=== PATIENT | male | born 1985 | race Caucasian/White ===

== ENCOUNTER 2023-02-22 13:20 | Inpatient (IN) ==
[2023-02-22] MEDS ORDERED: LORazepam 1 MG TAB SL STA (13:59)
[2023-02-22] MEDS ORDERED: hydrOXYzine HCl 25 MG TAB PO STA (13:59)
--- NOTE | 2023-02-22 14:08 | Emergency Department Note ---
Impression & Plan Suicidal ideation, Anxiety ED Provider Note NAME: HAYDE PALOMO AGE: 37 SEX: M : 1985 ARRIVES VIA: Walk-In INFORMANT: [Patient] ED PROVIDER(S): [Mendez Lowry MD] CHIEF COMPLAINT: Psychiatric evaluation HISTORY OF PRESENT ILLNESS: The patient is a 37-year-old male who has had anxiety and panic for many many years. He was on Celexa for a while but is not on this medication any longer. The patient states that his doctors office put him on Adderall and Zoloft recently but this did not help, in fact it made him feel worse. He is currently taking his 's leftover Lexapro which he thinks may be helping some. Patient does smoke marijuana regularly. He used to use alcohol as a self- medication but has been avoiding this lately. Patient states that he has had increased stress from work. He just started a new job a few months ago and since starting the job, has been overwhelmed. He has been tearful, he is not sleeping. He is always thinking about the stress of work, Mondays are the worst. The patient is with his patient services technician currently. He was speaking to his patient services technician today for 3 hours or so and the decision was made to come to the hospital for an evaluation and hospitalization. The patient admits to some suicidal ideation with no active plan. He just wishes he would and that the pain from all his stress would go away. PMHx/PSHx: See Below SOCIAL HISTORY: See Below. PHYSICAL EXAM: GENERAL: Patient is in mild distress, anxious, tearful. HEENT: No acute trauma, normocephalic atraumatic, mucous membranes moist, no nasal congestion. NECK: No stridor, no adenopathy, no meningismus, trachea is midline. LUNGS: Clear to auscultation bilaterally, no wheeze, no rhonchi, breath sounds equal. HEART: Mildly tachycardic, regular rhythm, no murmurs. ABDOMEN: Soft, nontender, bowel sounds positive, no peritonitis. EXTREMITIES: No cyanosis or edema, full range of motion of all the joints without pain or difficulty, no signs for acute trauma. NEUROLOGIC: Oriented x 3, no acute motor or sensory deficits, no focal weakness. SKIN: No rash, no jaundice, no diaphoresis. Psychiatric: Cooperative, voluntary, tearful, admits to suicidal ideation with no active plan. DIFFERENTIAL DIAGNOSIS: Psychosis, anxiety or depression, electrolyte imbalance, thyroid disorder, bipolar disease, OCD, suicidality, among others. EMERGENCY DEPARTMENT COURSE/PROCEDURES: Prior/Outside records reviewed: None. MEDICAL DECISION MAKING: There is no leukocytosis or anemia. There is a normal platelet count. No renal failure or significant electrolyte abnormality. No concerning liver enzyme elevation. Patient appeared to be in a euthyroid state. Urinalysis does not show infection. Urine drug screen returned positive for marijuana. Alcohol level returned undetectable. Aspirin and Tylenol levels are currently pending. On exam, the patient was tearful and anxious. He admitted to some suicidal ideation without any true plan. He was voluntary. He was initially hypertensive although this resolved with relaxation and time. The patient received oral hydroxyzine and oral Ativan for his anxiety and stress. He has done well with this medication. Patient was felt medically clear. The patient was seen by psychiatry case management. A voluntary psychiatric bed search is underway. At this point, the patient is going to have his care assumed by Dr. Wang. Please see his note for the patient's final disposition and plan. DISPOSITION: Currently still an ED patient. Past Med/Surg History Medical History Anxiety Social History Smoking Status: Never smoker Preferred Language: Setswana Feels Safe at Home: Yes Gender Identity: Male Results & Data (ED) Vital Signs Vital Signs - 24 hr 02/22/23 13:26 02/22/23 16:30 Temperature 36.6 C Temperature Source Temporal Artery Scan Pulse Rate 105 H Pulse Rate [Finger] 68 Pulse Rhythm [Finger] Regular Pulse Strength [Finger] Normal Respiratory Rate 18 18 Respiratory Effort / Characteristics Non-Labored Spontaneous Non-Labored Respiratory Depth Normal Normal Respiratory Pattern Regular Regular Blood Pressure 174/111 H Blood Pressure [Left Arm] 121/80 Blood Pressure Mean 132 Blood Pressure Mean [Left Arm] 93 Blood Pressure Position Sitting Blood Pressure Position [Left Arm] Sitting Pulse Oximetry 97 98 Oxygen Delivery Method Room Air Room Air Sepsis Recent Fever Within 48 Hours No Sepsis New/Unexplained Change in Mental Status N/A Sepsis Action Taken by Nursing No Action Required Home Medications Current Medication List: was personally reviewed by me Laboratory Data Attestation: I reviewed the patient's lab results. 02/22/23 14:10 02/22/23 14:10 Lab Results 02/22/23 02/22/23 02/22/23 Range/Units 14:05 14:05 14:10 WBC 9.62 (4.8-10.8) K/ul RBC 5.04 (4.70-6.10) M/uL Hgb 15.3 (14.0-18.0) g/dl Hct 43.2 (42.0-52.0) % MCV 85.7 (80.0-100.0) fL MCH 30.4 (25.0-34.0) pg MCHC 35.4 (32.0-36.0) g/dL RDW Std Deviation 37.2 (36.4-46.3) fL RDW Coeff of Maya 12.0 (11.5-14.5) % Plt Count 295 (130-400) K/uL MPV 10.1 (9.4-12.4) fL Immature Gran % (Auto) 0.1 % Neut % (Auto) 71.8 % Lymph % (Auto) 17.6 % [place]lin % (Auto) 8.9 % Eos % (Auto) 1.0 % Baso % (Auto) 0.6 % Neut # (Auto) 6.90 H (1.40-6.50) K/uL Lymph # (Auto) 1.69 (1.2-3.4) K/uL [place]lin # (Auto) 0.86 H (0.11-0.59) K/uL Eos # (Auto) 0.10 (0-0.50) K/uL Baso # (Auto) 0.06 (0-0.2) K/uL Immature Gran # (Auto) 0.01 (0.01-0.20) K/uL Sodium (136-145) mmol/L Potassium (3.5-5.1) mmol/L Chloride (98-107) mmol/L Carbon Dioxide (21-32) mmol/L Anion Gap (3-11) BUN (6-23) mg/dl Creatinine (0.6-1.4) mg/dl Est Cr Clr Drug Dosing Est GFR ( Amer) ml/min Est GFR (Non-Af Amer) ml/min BUN/Creatinine Ratio (10-20) Glucose (70-99(Fasting)) mg/dl Calcium (8.6-10.3) mg/dl Total Bilirubin (0.2-1.0) mg/dl AST (13-39) U/L ALT (7-52) U/L Alkaline Phosphatase (34-104) U/L Total Protein (6.0-8.3) gm/dl Albumin (3.4-5.0) gm/dl Globulin (2.5-4.0) gm/dl Albumin/Globulin Ratio (0.9-2) TSH (0.300-4.500) uIu/ml Urine Color Yellow Urine Appearance Clear (Clear) Urine pH 7.0 (4.5-7.5) Ur Specific [place] 1.016 (1.000-1.030) Urine Protein Negative (Negative) Urine Glucose (UA) Negative (Negative) Urine Ketones Negative (Negative) Urine Blood Negative (Negative) Urine Nitrite Negative (Negative) Urine Bilirubin Negative (Negative) Urine Urobilinogen Negative (Negative) Ur Leukocyte Esterase Negative (Negative) Urine Opiates Screen Neg (Neg) Ur Methadone, Qual Neg (Neg) Urine Barbiturates Neg (Neg) Ur Phencyclidine (PCP) Neg (Neg) U Amphetamin/Meth Scrn Neg (Neg) MDMA (Ecstasy) Screen Neg (Neg) U Benzodiazepines Scrn Neg (Neg) Ur Cocaine Metabolite Neg (Neg) U Marijuana (THC) Screen Pos H (Neg) Ethyl Alcohol mg/dL (<10.0) mg/dl SARS-CoV-2, RNA, NAAT (NEGATIVE) 02/22/23 02/22/23 02/22/23 Range/Units 14:10 14:10 14:10 WBC (4.8-10.8) K/ul RBC (4.70-6.10) M/uL Hgb (14.0-18.0) g/dl Hct (42.0-52.0) % MCV (80.0-100.0) fL MCH (25.0-34.0) pg MCHC (32.0-36.0) g/dL RDW Std Deviation (36.4-46.3) fL RDW Coeff of Maya (11.5-14.5) % Plt Count (130-400) K/uL MPV (9.4-12.4) fL Immature Gran % (Auto) % Neut % (Auto) % Lymph % (Auto) % [place]lin % (Auto) % Eos % (Auto) % Baso % (Auto) % Neut # (Auto) (1.40-6.50) K/uL Lymph # (Auto) (1.2-3.4) K/uL [place]lin # (Auto) (0.11-0.59) K/uL Eos # (Auto) (0-0.50) K/uL Baso # (Auto) (0-0.2) K/uL Immature Gran # (Auto) (0.01-0.20) K/uL Sodium 137 (136-145) mmol/L Potassium 3.8 (3.5-5.1) mmol/L Chloride 102 (98-107) mmol/L Carbon Dioxide 26 (21-32) mmol/L Anion Gap 9 (3-11) BUN 16 (6-23) mg/dl Creatinine 0.87 (0.6-1.4) mg/dl Est Cr Clr Drug Dosing Not Reportable Est GFR ( Amer) 126.9 ml/min Est GFR (Non-Af Amer) 109.5 ml/min BUN/Creatinine Ratio 18.4 (10-20) Glucose 87 (70-99(Fasting)) mg/dl Calcium 9.6 (8.6-10.3) mg/dl Total Bilirubin 0.8 (0.2-1.0) mg/dl AST 20 (13-39) U/L ALT 22 (7-52) U/L Alkaline Phosphatase 69 (34-104) U/L Total Protein 7.7 (6.0-8.3) gm/dl Albumin 4.7 (3.4-5.0) gm/dl Globulin 3.0 (2.5-4.0) gm/dl Albumin/Globulin Ratio 1.6 (0.9-2) TSH 2.868 (0.300-4.500) uIu/ml Urine Color Urine Appearance (Clear) Urine pH (4.5-7.5) Ur Specific [place] (1.000-1.030) Urine Protein (Negative) Urine Glucose (UA) (Negative) Urine Ketones (Negative) Urine Blood (Negative) Urine Nitrite (Negative) Urine Bilirubin (Negative) Urine Urobilinogen (Negative) Ur Leukocyte Esterase (Negative) Urine Opiates Screen (Neg) Ur Methadone, Qual (Neg) Urine Barbiturates (Neg) Ur Phencyclidine (PCP) (Neg) U Amphetamin/Meth Scrn (Neg) MDMA (Ecstasy) Screen (Neg) U Benzodiazepines Scrn (Neg) Ur Cocaine Metabolite (Neg) U Marijuana (THC) Screen (Neg) Ethyl Alcohol mg/dL < 10.0 (<10.0) mg/dl SARS-CoV-2, RNA, NAAT (NEGATIVE) 02/22/23 Range/Units 14:10 WBC (4.8-10.8) K/ul RBC (4.70-6.10) M/uL Hgb (14.0-18.0) g/dl Hct (42.0-52.0) % MCV (80.0-100.0) fL MCH (25.0-34.0) pg MCHC (32.0-36.0) g/dL RDW Std Deviation (36.4-46.3) fL RDW Coeff of Maya (11.5-14.5) % Plt Count (130-400) K/uL MPV (9.4-12.4) fL Immature Gran % (Auto) % Neut % (Auto) % Lymph % (Auto) % [place] % (Auto) % Eos % (Auto) % Baso % (Auto) % Neut # (Auto) (1.40-6.50) K/uL Lymph # (Auto) (1.2-3.4) K/uL [place] # (Auto) (0.11-0.59) K/uL Eos # (Auto) (0-0.50) K/uL Baso # (Auto) (0-0.2) K/uL Immature Gran # (Auto) (0.01-0.20) K/uL Sodium (136-145) mmol/L Potassium (3.5-5.1) mmol/L Chloride (98-107) mmol/L Carbon Dioxide (21-32) mmol/L Anion Gap (3-11) BUN (6-23) mg/dl Creatinine (0.6-1.4) mg/dl Est Cr Clr Drug Dosing Est GFR ( Amer) ml/min Est GFR (Non-Af Amer) ml/min BUN/Creatinine Ratio (10-20) Glucose (70-99(Fasting)) mg/dl Calcium (8.6-10.3) mg/dl Total Bilirubin (0.2-1.0) mg/dl AST (13-39) U/L ALT (7-52) U/L Alkaline Phosphatase (34-104) U/L Total Protein (6.0-8.3) gm/dl Albumin (3.4-5.0) gm/dl Globulin (2.5-4.0) gm/dl Albumin/Globulin Ratio (0.9-2) TSH (0.300-4.500) uIu/ml Urine Color Urine Appearance (Clear) Urine pH (4.5-7.5) Ur Specific [place] (1.000-1.030) Urine Protein (Negative) Urine Glucose (UA) (Negative) Urine Ketones (Negative) Urine Blood (Negative) Urine Nitrite (Negative) Urine Bilirubin (Negative) Urine Urobilinogen (Negative) Ur Leukocyte Esterase (Negative) Urine Opiates Screen (Neg) Ur Methadone, Qual (Neg) Urine Barbiturates (Neg) Ur Phencyclidine (PCP) (Neg) U Amphetamin/Meth Scrn (Neg) MDMA (Ecstasy) Screen (Neg) U Benzodiazepines Scrn (Neg) Ur Cocaine Metabolite (Neg) U Marijuana (THC) Screen (Neg) Ethyl Alcohol mg/dL (<10.0) mg/dl SARS-CoV-2, RNA, NAAT NEGATIVE (NEGATIVE) Administered Medications Discontinued Medications Hydroxyzine HCl (Hydroxyzine Hcl 25 Mg Tab) 25 mg PO NOW STA Stop: 02/22/23 14:00 Last Admin: 02/22/23 14:07 Dose: 25 mg Documented By: Lorazepam (Lorazepam 1 Mg Tab) 1 mg SL NOW STA Stop: 02/22/23 14:00 Last Admin: 02/22/23 14:06 Dose: 1 mg Documented By: AB Discharge Plan Visit Data Chief Complaint: Psychiatric Symptoms/Problems Stated Complaint: MENTAL HEALTH EVAL ED Provider: Mendez Lowry Discharge Problem: Suicidal ideation, Anxiety Patient Disposition: Still a Patient Condition: Good Forms Stand Alone Forms: [facility], Suicide Prevention Resources Referrals Referrals: PCP,NO [Primary Care Provider] -
[2023-02-22 14:41] LABS: Basophils # (auto) 0.06 K/uL (0-0.2); Basophils % (auto) 0.6 %; Hematocrit (blood only) 43.2 % (42.0-52.0); Hemoglobin 15.3 g/dl (14.0-18.0); Immature Granulocytes # (auto) 0.01 K/uL (0.01-0.20); Immature Granulocytes % (auto) 0.1 %; Lymphocytes # (auto) 1.69 K/uL (1.2-3.4); Lymphocytes % (auto) 17.6 %; Mean Corpuscular Hemoglobin 30.4 pg (25.0-34.0); Mean Corpuscular Hgb Conc 35.4 g/dL (32.0-36.0); Mean Corpuscular Volume 85.7 fL (80.0-100.0); Mean Platelet Volume 10.1 fL (9.4-12.4); Monocytes # (auto) 0.86 K/uL (0.11-0.59); Monocytes % (auto) 8.9 %; Neutrophils % (auto) 71.8 %; Platelet Count 295 K/uL (130-400); RDW Standard Deviation 37.2 fL (36.4-46.3); Red Blood Count 5.04 M/uL (4.70-6.10); White Blood Count 9.62 K/ul (4.8-10.8)
[2023-02-22 14:43] LABS: Appearance Urine Clear (Clear); Bilirubin Urine Negative (Negative); Blood Urine Negative (Negative); Color Urine Yellow; Glucose Urine UA Negative (Negative); Ketones Urine Negative (Negative); Leukocyte Esterase Urine Negative (Negative); Nitrite Urine Negative (Negative); Protein Urine Negative (Negative); Specific Gravity Urine 1.016 (1.000-1.030); Urobilinogen Urine Negative (Negative)
[2023-02-22 14:52] LABS: Alanine Aminotransferase 22 U/L (7-52); Albumin Globulin Ratio 1.6 (0.9-2); Albumin Level 4.7 gm/dl (3.4-5.0); Alkaline Phosphatase 69 U/L (34-104); Anion Gap 9 (3-11); Aspartate Aminotransferase 20 U/L (13-39); BUN Creatinine Ratio 18.4 (10-20); Bilirubin,Total 0.8 mg/dl (0.2-1.0); Blood Urea Nitrogen 16 mg/dl (6-23); Calcium 9.6 mg/dl (8.6-10.3); Carbon Dioxide 26 mmol/L (21-32); Chloride 102 mmol/L (98-107); Est GFR (African American) 126.9 ml/min; Est GFR (Non-African American) 109.5 ml/min; Glucose 87 mg/dl (70-99(Fasting)); Potassium 3.8 mmol/L (3.5-5.1); Sodium 137 mmol/L (136-145); Total Protein 7.7 gm/dl (6.0-8.3)
[2023-02-22 15:23] LABS: Amphetamines+Metham, Urine Neg (Neg); Barbiturates, Urine Neg (Neg); Benzodiazepine, Urine Neg (Neg); Cocaine, Urine Neg (Neg); MDMA (Ecstacy), Urine Neg (Neg); Methadone, Urine Neg (Neg); Opiate, Urine Neg (Neg); Phencyclidine, Urine Neg (Neg)
[2023-02-22 16:39] LABS: Acetaminophen < 3 ug/ml (10-30); Salicylate < 3.0 mg/dl (3.0-30)
--- NOTE | 2023-02-22 17:11 | Emergency Department Note ---
ED Visit Note The patient is a 37-year-old male who presented to the emergency department for mental health evaluation. The patient initially was seen by Dr. Lowry. Please see his note for initial history and physical exam. I received this patient at change of shift signout. The patient was medically cleared. At this time bed search is currently underway. The patient is agreeable to inpatient management at this time. The patient was evaluated by [facility]. He was felt to be a good candidate for admission to [facility]. I did sign the 201 paperwork. .
[2023-02-22] MEDS ORDERED: MAGNESIUM HYDROXIDE SUSP 30 ML UDC PO PRN (19:35)
[2023-02-22] MEDS ORDERED: hydrOXYzine HCl 25 MG TAB PO PRN (19:35)
[2023-02-22] MEDS ORDERED: SODIUM CHLORIDE 0.65% NA SOLN 45 ML (OCEAN) PRN (19:35)
[2023-02-22] MEDS ORDERED: ALUMINUM/MAGNESIUM SUSP 30 ML UDC PO PRN (19:35)
[2023-02-22] MEDS ORDERED: ACETAMINOPHEN 325 MG TAB PO PRN (19:35)
[2023-02-22] MEDS ORDERED: BISMUTH SUBSALICYLATE LIQD 236 ML PO PRN (19:35)
[2023-02-22] MEDS: hydrOXYzine HCl 25 MG TAB PO PRN (21:44)
[2023-02-23] MEDS: ESCITALOPRAM OXALATE 20 MG TAB PO SCH (10:18)
--- NOTE | 2023-02-23 13:36 | History & Physical ---
Date of Service February 23, 2023 Impression / Recommendations Impression 37 yo male presenting with depressive episode 2 months into a new job driven by severe anxiety/perfectionism at baseline. There is a family hx of bipolar disorder and although he doesn't identify sharon, was drinking heavily until fall 2021 which may have masked symptoms. He reports ADHD symptoms as a child which may further complicate diagnosis. (1) Major depressive disorder with current active episode: (2) Generalized anxiety disorder: (3) Alcohol use disorder: 02/23/23: Intervention was greater than 5 min in length and included assessing ongoing motivation to abstain from alcohol as recently going out for 2-3 drinks with coworkers and using medical MJ daily. workers compensation claims adjuster will also assist in anticipating barriers to sobriety and in problem-solving for solutions to those problems while arranging for referral to aftercare. The patient is advised to decrease alcohol consumption due to depressant effects and risk of interaction with prescription medications. No current risk of withdrawal. Plan The patient was admitted to the [facility] ([facility] unit) on q15 min checks (behavioral with suicide precautions) for safety. The patient will participate in group, recreational, and milieu therapies and will be offered additional individual and family sessions as clinically appropriate. Risks/benefits/alternatives reviewed re: antidepressants for the treatment of depression and/or anxiety. The patient agreed to a trial of Lexapro, as taking 10 mg for 3-4 weeks will titrate to 20 mg and monitor. Vistaril prn as ordered. Inventory Assets Strengths: intelligent, help seeking Needs: improve coping, maintain abstinence from ETOH Suicide Risk Level Suicide Risk Level: High-Moderate (q15 min suicide checks) Risk Factors Assessment Male: Yes : Yes Do You Have Access To A Gun?: No Mental Health Diagnoses: Yes Substance Use Disorders: Yes Previous Attempt: No Previous Psychiatric Hospitalization: No Protective Factors Assessment : Yes Responsible for Young Children: Yes Employed: Yes Stable Relationships: Yes Supportive Family: Yes Psychiatric History Identifying Data HAYDE PALOMO is a 37-year-old M who currently lives in [place], and was admitted on 02/22/23 19:36 on a 201 voluntary commitment for SI. Chief Complaint "I really hit a wall, I'm so stressed at work and I'm not myself at home". History of Present Illness As per ED CM: Patient admits to suicidal ideations for the past 3 or 4 months, but recently those thought have become more pronounced. Patient has an ambivalence to living/dying and if a car would cross the middle line in hit him, he would be okay with that. Patient was watching a television show with his favorite actor Tomas Pepe who completed suicide via hanging himself, patient considered this plan. Patient just wants to find peace in his head. Patient was prescribed Zoloft and Adderall by his PCP recently, however, patient did not like the side effects, so he discontinued. Patient then started Lexapro 10mg, a prescription prescribed to his and has been taking it for the past 2 weeks, he is unsure if he has seen improvements. 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 Patient reports depressive symptoms as crying spells, feelings of helpless/hopelessness, self-devaluation, guilt, lack of motivation, loss of daily function, isolating/avoiding situations, anhedonia, poor concentration and decrease in restful sleep. Patient reports manic symptoms of elevated/expansive mood, racing thoughts and flight of ideas. Patient describes severe anxiety on most days with chest discomfort, shortness of breath, hot flashes, trembling and a sense of burying head in sand with occasional anxiety attacks. Patient denies visual hallucinations, but is having these very strong thoughts/voices that are extremely negative and critical. Patient is unsure if he would call them hallucinations. Patient reports he was bullied in school, but does not necessarily feel it would be considered trauma/abuse. Patient reports he had a previous history of alcohol abuse earlier this year drinking every day. Patient is now drinking alcohol 1-2x weekly, prescribed medical marijuana card and is smoking nearly every day in the evenings, denies tobacco use. Patient lives at home with his 16 years and 3 children, ages 13, 11 and 8. Patient especially enjoys hiking, playing tennis, playing pickle ball, megan-caching, watching movies, spending time with his children and campfires; however, he has lost all interest in those at this time. Patient reports last night his oldest child told him he was a disappointment. Patient does not have any medical concerns, wears contacts and has those in. Today the patient confirms the history as presented. Feels that Lexapro has been helpful but not enough to help with his depression, anxiety, social anxiety, and perfectionistic traits. He reported a family history of bipolar but denies sharon though his thoughts race and he has self medicated heavily in the past with ETOH referring to himself as a "functional alcoholic." He was able to cut back on his use on his own, mainly as swapped for medical MJ in 08/2023. He denies any change in his use or types of products (thC vs cbd). He has been discussing his symptoms with HR and utilized [facility] to connect with an online therapist with whom he has 1 session. He does believe that he had ADHD symptoms as a child and still impacts his adult life. He was made aware that we do not provide full ADHD testing battery and focus of treatment is getting his depression and anxiety under better control so that he can be further assessed. ADHD-RS will be provided. Past Psychiatric History Current Psychiatric Diagnosis: MDD Outpatient Services: [facility] Previous Psych Admissions: none Do You Have Access To A Gun?: No History of Previous Suicide Attempt: No Past Medication Trials: Celexa for 10 years while drinking heavily so unsure if helpful, stopped because he wanted a reset. His PCP office started Zoloft and Adderall but "made things worse" (non specific) Allergies Allergy/AdvReac Type Severity Reaction Status Date / Time No Known Allergies Allergy Unverified 02/23/23 08:08 Family History Family History of: Depression and Bipolar Family Mental Health History Comment: dad- diagnosed for anxiety/depression siblings: sister 302, bipolar brother: wheel/physically impaired, MH hospitalization, suicide Alcohol History Hx of Alcohol Use Over the Past 12 Months: Yes (1-2x weekly, previously daily at the beginning of the year) AUDIT Total Score: 3 Smoking Use Have You Smoked or Used Tobacco Products in the Last 30 Days: No Smoking Status: Never smoker Substance History Hx of Prescription Med Misuse Over the Past 12 Months: No Hx of Over the Counter Med Misuse Over the Past 12 Months: No Hx of Inhalent Misuse Over the Past 12 Months: No Hx of Organic Substance Use Over the Past 12 Months: Yes (Medical marijuana card, almost daily use) Hx of Illegal Substances/Street Drug Use Over Past 12 Months: No Problems as a Result of Past Substance Use: None Identified Problems as a Result of Past Substance Use Comments: New job 2 months ago causing stress. Personal History Living Arrangements: Home Childhood: 2nd oldest of 5 Highest Grade Completed: College Highest Grade Completed Comment: 2 bachelors degrees Employment Status: [employer] Employed ([employer]) Marital Status: Number Of Children: 3 Beliefs That Will Affect Care: None Current Legal Problems: No Hx Legal Problems: No Hx Traumatic Life Events: No Patient History Medical History (Updated 02/23/23 @ 13:48 by Asha Lopez MD) Alcohol use disorder Anxiety Social History Smoking Status: Never smoker Preferred Language: Serbian Communication Ability: Effective Cake Batter Mixer Required: No Beliefs That Will Affect Care: None Feels Safe at Home: Yes Gender Identity: Male Assistive Devices: Contacts Review of Systems Review of Systems: All systems reviewed & are unremarkable except as noted in HPI & below Physical Exam Psychiatric: Orientation: alert and oriented x 3 Apperance: appropriately dressed and appropriately groomed Eye Contact: good eye contact Motor Behavior: no abnormal motor movements Speech: normal rate/rhythm/volume of speech Affect: + depressed affect Mood: + depressed mood Thought Process: goal directed thought process Thought Content: reality based without delusions Suicidal Thoughts: denies suicidal intent; + reports suicidal thoughts (passive) Homicidal Thoughts: denies homicidal thoughts Hallucinations: no auditory hallucinations and no visual hallucinations Cognition: attention grossly intact and language grossly intact Estimated Intelligence: consistent with education level Insight: + limited insight Judgment: + limited judgement Vital Signs (Past 24 Hours): Last Vital Signs Temp 36.6 C 02/23/23 06:41 Pulse 96 H 02/23/23 06:42 Resp 18 02/23/23 06:41 BP 127/86 02/23/23 06:42 Pulse Ox 95 02/22/23 20:39 O2 Del Method Room Air 02/22/23 20:39 Exam Statement: A physical exam was performed in the ED by Dr. Lowry for the purposes of medical clearance. I accept that physical as correct and adequate for the purposes of the inpatient physical exam. Results & Data ([facility]) Laboratory Results Laboratory Results - last 24 hr 02/22/23 02/22/23 02/22/23 14:01 14:05 14:05 WBC RBC Hgb Hct MCV MCH MCHC RDW Std Deviation RDW Coeff of Maya Plt Count MPV Immature Gran % (Auto) Neut % (Auto) Lymph % (Auto) Dunn % (Auto) Eos % (Auto) Baso % (Auto) Neut # (Auto) Lymph # (Auto) Dunn # (Auto) Eos # (Auto) Baso # (Auto) Immature Gran # (Auto) Sodium Potassium Chloride Carbon Dioxide Anion Gap BUN Creatinine Est Cr Clr Drug Dosing Est GFR ( Amer) Est GFR (Non-Af Amer) BUN/Creatinine Ratio Glucose Calcium Total Bilirubin AST ALT Alkaline Phosphatase Total Protein Albumin Globulin Albumin/Globulin Ratio TSH Urine Color Yellow Urine Appearance Clear Urine pH 7.0 Ur Specific [place] 1.016 Urine Protein Negative Urine Glucose (UA) Negative Urine Ketones Negative Urine Blood Negative Urine Nitrite Negative Urine Bilirubin Negative Urine Urobilinogen Negative Ur Leukocyte Esterase Negative Salicylates < 3.0 L Urine Opiates Screen Neg Ur Methadone, Qual Neg Acetaminophen < 3 L Urine Barbiturates Neg Ur Phencyclidine (PCP) Neg U Amphetamin/Meth Scrn Neg MDMA (Ecstasy) Screen Neg U Benzodiazepines Scrn Neg Ur Cocaine Metabolite Neg U Marijuana (THC) Screen Pos H U Marijuana THC Carboxy Drug Screen Comment Ethyl Alcohol mg/dL SARS-CoV-2, RNA, NAAT 02/22/23 02/22/23 02/22/23 14:05 14:10 14:10 WBC 9.62 RBC 5.04 Hgb 15.3 Hct 43.2 MCV 85.7 MCH 30.4 MCHC 35.4 RDW Std Deviation 37.2 RDW Coeff of Maya 12.0 Plt Count 295 MPV 10.1 Immature Gran % (Auto) 0.1 Neut % (Auto) 71.8 Lymph % (Auto) 17.6 Dunn % (Auto) 8.9 Eos % (Auto) 1.0 Baso % (Auto) 0.6 Neut # (Auto) 6.90 H Lymph # (Auto) 1.69 Dunn # (Auto) 0.86 H Eos # (Auto) 0.10 Baso # (Auto) 0.06 Immature Gran # (Auto) 0.01 Sodium 137 Potassium 3.8 Chloride 102 Carbon Dioxide 26 Anion Gap 9 BUN 16 Creatinine 0.87 Est Cr Clr Drug Dosing Not Reportable Est GFR ( Amer) 126.9 Est GFR (Non-Af Amer) 109.5 BUN/Creatinine Ratio 18.4 Glucose 87 Calcium 9.6 Total Bilirubin 0.8 AST 20 ALT 22 Alkaline Phosphatase 69 Total Protein 7.7 Albumin 4.7 Globulin 3.0 Albumin/Globulin Ratio 1.6 TSH Urine Color Urine Appearance Urine pH Ur Specific [place] Urine Protein Urine Glucose (UA) Urine Ketones Urine Blood Urine Nitrite Urine Bilirubin Urine Urobilinogen Ur Leukocyte Esterase Salicylates Urine Opiates Screen Ur Methadone, Qual Acetaminophen Urine Barbiturates Ur Phencyclidine (PCP) U Amphetamin/Meth Scrn MDMA (Ecstasy) Screen U Benzodiazepines Scrn Ur Cocaine Metabolite U Marijuana (THC) Screen U Marijuana THC Carboxy Pending Drug Screen Comment Pending Ethyl Alcohol mg/dL SARS-CoV-2, RNA, NAAT 02/22/23 02/22/23 02/22/23 14:10 14:10 14:10 WBC RBC Hgb Hct MCV MCH MCHC RDW Std Deviation RDW Coeff of Maya Plt Count MPV Immature Gran % (Auto) Neut % (Auto) Lymph % (Auto) Dunn % (Auto) Eos % (Auto) Baso % (Auto) Neut # (Auto) Lymph # (Auto) Dunn # (Auto) Eos # (Auto) Baso # (Auto) Immature Gran # (Auto) Sodium Potassium Chloride Carbon Dioxide Anion Gap BUN Creatinine Est Cr Clr Drug Dosing Est GFR ( Amer) Est GFR (Non-Af Amer) BUN/Creatinine Ratio Glucose Calcium Total Bilirubin AST ALT Alkaline Phosphatase Total Protein Albumin Globulin Albumin/Globulin Ratio TSH 2.868 Urine Color Urine Appearance Urine pH Ur Specific [place] Urine Protein Urine Glucose (UA) Urine Ketones Urine Blood Urine Nitrite Urine Bilirubin Urine Urobilinogen Ur Leukocyte Esterase Salicylates Urine Opiates Screen Ur Methadone, Qual Acetaminophen Urine Barbiturates Ur Phencyclidine (PCP) U Amphetamin/Meth Scrn MDMA (Ecstasy) Screen U Benzodiazepines Scrn Ur Cocaine Metabolite U Marijuana (THC) Screen U Marijuana THC Carboxy Drug Screen Comment Ethyl Alcohol mg/dL < 10.0 SARS-CoV-2, RNA, NAAT NEGATIVE Current Inpatient Medications Current Inpatient Medications: Current Inpatient Medications Acetaminophen (Acetaminophen 325 Mg Tab) 650 mg PO Q4H PRN PRN Reason: Headache or Minor Fever Stop: 03/24/23 19:34 Al Hydrox/Mg Hydrox/Simethicone (Aluminum/Magnesium Susp 30 Ml Udc) 30 ml PO Q4H PRN PRN Reason: GI Upset Stop: 03/24/23 19:34 Bismuth Subsalicylate (Bismuth Subsalicylate Liqd 236 Ml) 15 ml PO PRN PRN PRN Reason: Loose Stool Stop: 03/24/23 19:34 Escitalopram Oxalate (Escitalopram Oxalate 20 Mg Tab) 20 mg PO QAM WALDO Stop: 03/25/23 09:29 Last Admin: 02/23/23 10:18 Dose: 20 mg Hydroxyzine HCl (Hydroxyzine Hcl 25 Mg Tab) 50 mg PO HSZ PRN PRN Reason: Insomnia Stop: 03/24/23 19:34 Last Admin: 02/22/23 21:44 Dose: 50 mg Hydroxyzine HCl (Hydroxyzine Hcl 25 Mg Tab) 25 mg PO Q4H PRN PRN Reason: Anxiety Stop: 03/24/23 19:34 Magnesium Hydroxide (Magnesium Hydroxide Susp 30 Ml Udc) 30 ml PO DAILY PRN PRN Reason: Constipation Stop: 03/24/23 19:34 Sodium Chloride (Sodium Chloride 0.65% Na Soln 45 Ml ([place])) 1 - 2 sprays NA PRN PRN PRN Reason: Nasal Dryness/Congestion Stop: 03/24/23 19:34
[2023-02-23] MEDS: hydrOXYzine HCl 25 MG TAB PO PRN (21:39)
[2023-02-24] MEDS: ESCITALOPRAM OXALATE 20 MG TAB PO SCH (07:38)
[2023-02-24] MEDS ORDERED: traZODone HCL 50 MG TAB PO PRN (12:38)
[2023-02-24] MEDS ORDERED: hydrOXYzine HCl 25 MG TAB PO PRN (12:38)
--- NOTE | 2023-02-24 12:40 | Psychiatric Progress Note ---
Date of Service February 24, 2023 Impression / Recommendations Impression 37 yo male presenting with depressive episode 2 months into a new job driven by severe anxiety/perfectionism at baseline. There is a family hx of bipolar disorder and although he doesn't identify sharon, was drinking heavily until fall 2021 which may have masked symptoms. He reports ADHD symptoms as a child which may further complicate diagnosis. Imp: highly anxious, superficially bright (1) Major depressive disorder with current active episode: (2) Generalized anxiety disorder: (3) Alcohol use disorder: 02/23/23: Intervention was greater than 5 min in length and included assessing ongoing motivation to abstain from alcohol as recently going out for 2-3 drinks with coworkers and using medical MJ daily. poultry offal worker will also assist in anticipating barriers to sobriety and in problem-solving for solutions to those problems while arranging for referral to aftercare. The patient is advised to decrease alcohol consumption due to depressant effects and risk of interaction with prescription medications. No current risk of withdrawal. Plan 02/24/23: Reviewed acute inpatient is for stabilization and needs longer term therapy and time for medication adjustments to take effect. Encouraged to consider FMLA options. Referred to [facility] and will be given blank testing option if desires to be see sooner. risks/benefits reviewed re: trazodone in place of hs hydroxyzine. hx of snoring when 35 lbs heavier but not now. 02/23/23: The patient was admitted to the [facility]) on q15 min checks (behavioral with suicide precautions) for safety. The patient will participate in group, recreational, and milieu therapies and will be offered additional individual and family sessions as clinically appropriate. Risks/benefits/alternatives reviewed re: antidepressants for the treatment of depression and/or anxiety. The patient agreed to a trial of Lexapro, as taking 10 mg for 3-4 weeks will titrate to 20 mg and monitor. Vistaril prn as ordered. Inventory Assets Strengths: intelligent, help seeking Needs: improve coping, maintain abstinence from ETOH Suicide Risk Level Suicide Risk Level: High-Moderate (q15 min suicide checks) Risk Factors Assessment Male: Yes : Yes Do You Have Access To A Gun?: No Mental Health Diagnoses: Yes Substance Use Disorders: Yes Previous Attempt: No Previous Psychiatric Hospitalization: No Protective Factors Assessment : Yes Responsible for Young Children: Yes Employed: Yes Stable Relationships: Yes Supportive Family: Yes Interval History Identifying Information HAYDE PALOMO is a 37-year-old M who currently lives in [place], and was admitted on 02/22/23 19:36 on a 201 voluntary commitment for SI. Chief Complaint "I'm just overhwelmed with [unamed patient] leaving" Review of Systems Sleep Information Total Hours of Sleep: 6.5 Meal Information Percent Meal Consumed - Breakfast: 100 Percent Meal Consumed - Lunch: 100 Percent Meal Consumed - Dinner: 100 Subjective Subjective Patient was seen & assessed and interval progress reviewed with treatment team. Patient denies jitteriness from Lexapro but appears more restless than yesterday which he attributes to his roommate leaving. He had a harder time sleeping due to his anxiety though that is an issue at baseline. Also reviewed his medical MJ use which he cannot have here and is daily after work. He requested prn Ativan again. Encouraged trial of Vistaril and will increase the dose. Reviewed that I do not prescribe with medical MJ and hx of EToh abuse. Given ADHD-RS as remains focussed on full psychological battery for ADHD. Physical Exam Psychiatric Orientation: alert and oriented x 3 Apperance: appropriately dressed and appropriately groomed Eye Contact: good eye contact Motor Behavior: no abnormal motor movements Speech: normal rate/rhythm/volume of speech Affect: + anxious affect Mood: + depressed mood and + anxious mood Thought Process: goal directed thought process Thought Content: reality based without delusions Suicidal Thoughts: denies suicidal thoughts Homicidal Thoughts: denies homicidal thoughts Hallucinations: no auditory hallucinations and no visual hallucinations Cognition: attention grossly intact and language grossly intact Estimated Intelligence: consistent with education level Insight: + limited insight Judgment: + limited judgement Vital Signs (Past 24 Hours) Last Vital Signs Temp 36.7 C 02/24/23 06:39 Pulse 73 02/24/23 06:40 Resp 16 02/24/23 06:39 BP 123/86 02/24/23 06:40 Pulse Ox 95 02/22/23 20:39 O2 Del Method Room Air 02/22/23 20:39 Results & Data ([facility]) Current Inpatient Medications Current Inpatient Medications: Current Inpatient Medications Acetaminophen (Acetaminophen 325 Mg Tab) 650 mg PO Q4H PRN PRN Reason: Headache or Minor Fever Stop: 03/24/23 19:34 Al Hydrox/Mg Hydrox/Simethicone (Aluminum/Magnesium Susp 30 Ml Udc) 30 ml PO Q4H PRN PRN Reason: GI Upset Stop: 03/24/23 19:34 Bismuth Subsalicylate (Bismuth Subsalicylate Liqd 236 Ml) 15 ml PO PRN PRN PRN Reason: Loose Stool Stop: 03/24/23 19:34 Escitalopram Oxalate (Escitalopram Oxalate 20 Mg Tab) 20 mg PO QAM WALDO Stop: 03/25/23 09:29 Last Admin: 02/24/23 07:38 Dose: 20 mg Magnesium Hydroxide (Magnesium Hydroxide Susp 30 Ml Udc) 30 ml PO DAILY PRN PRN Reason: Constipation Stop: 03/24/23 19:34 Sodium Chloride (Sodium Chloride 0.65% Na Soln 45 Ml ([place])) 1 - 2 sprays NA PRN PRN PRN Reason: Nasal Dryness/Congestion Stop: 03/24/23 19:34 Trazodone HCl (Trazodone Hcl 100 Mg Tab) 100 mg PO HS WALDO Stop: 03/26/23 21:59 Trazodone HCl (Trazodone Hcl 50 Mg Tab) 50 mg PO HS PRN PRN Reason: Insomnia Stop: 03/26/23 21:59 Mental Health & Subst Abuse Tx Psychiatrist Name of Psychiatrist: Ene Headley- Messi Choi Psychiatrist's Date Of Appointment With Psychiatric Provider: 03/11/2023 Time of Appointment with Psychiatrist: 8:15am (please call within 24 hours to change/cancel appt.) Psychiatric Appointment Comment: [address] [place] [address] Therapist Name of Therapist: [facility]- Rakesh Mix Post Discharge Appointments Primary Care Physician Name Of Family Doctor/PCP: Daren Lawrence- Dr. Jose R Brown [facility] Time of Appointment with PCP: please follow up as needed Provider Appointment Comment: [address] [place] [address] Contact Information Discharge Discharge Address: [address] [place] [id number]
[2023-02-24] MEDS: traZODone HCL 100 MG TAB PO SCH (21:50)
[2023-02-24 22:58] LABS: Marijuana Quant, GCMS Urine 53 ng/mL (<5)
[2023-02-25] MEDS: ESCITALOPRAM OXALATE 20 MG TAB PO SCH (07:40)
--- NOTE | 2023-02-25 09:08 | Psychiatric Progress Note ---
Date of Service February 25, 2023 Impression / Recommendations Impression 37 yo male presenting with depressive episode 2 months into a new job driven by severe anxiety/perfectionism at baseline. There is a family hx of bipolar disorder and although he doesn't identify sharon, was drinking heavily until fall 2021 which may have masked symptoms. He reports ADHD symptoms as a child which may further complicate diagnosis. Imp: using cognitive reframing to redirect anxious thoughts more consistently (1) Major depressive disorder with current active episode: (2) Generalized anxiety disorder: (3) Alcohol use disorder: 02/23/23: Intervention was greater than 5 min in length and included assessing ongoing motivation to abstain from alcohol as recently going out for 2-3 drinks with coworkers and using medical MJ daily. 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 The patient is advised to decrease alcohol consumption due to depressant effects and risk of interaction with prescription medications. No current risk of withdrawal. Plan 02/25/23: continue current meds and tx plan, family meeting with . 02/24/23: Reviewed acute inpatient is for stabilization and needs longer term therapy and time for medication adjustments to take effect. Encouraged to consider FMLA options. Referred to [facility] and will be given blank testing option if desires to be see sooner. risks/benefits reviewed re: trazodone in place of hs hydroxyzine. hx of snoring when 35 lbs heavier but not now. 02/23/23: The patient was admitted to the [facility] ([facility] unit) on q15 min checks (behavioral with suicide precautions) for safety. The patient will participate in group, recreational, and milieu therapies and will be offered additional individual and family sessions as clinically appropriate. Risks/benefits/alternatives reviewed re: antidepressants for the treatment of depression and/or anxiety. The patient agreed to a trial of Lexapro, as taking 10 mg for 3-4 weeks will titrate to 20 mg and monitor. Vistaril prn as ordered. Inventory Assets Strengths: intelligent, help seeking Needs: improve coping, maintain abstinence from ETOH Suicide Risk Level Suicide Risk Level: Moderate (q15 min suicide checks) Risk Factors Assessment Male: Yes : Yes Do You Have Access To A Gun?: No Mental Health Diagnoses: Yes Substance Use Disorders: Yes Previous Attempt: No Previous Psychiatric Hospitalization: No Protective Factors Assessment : Yes Responsible for Young Children: Yes Employed: Yes Stable Relationships: Yes Supportive Family: Yes Interval History Identifying Information HAYDE PALOMO is a 37-year-old M who currently lives in [place], and was admitted on 02/22/23 19:36 on a 201 voluntary commitment for SI. Chief Complaint "I get it, I get so worked up with everything I have to do I can't focus. Review of Systems Sleep Information Total Hours of Sleep: 4 Meal Information Percent Meal Consumed - Breakfast: 100 Percent Meal Consumed - Lunch: 85 Percent Meal Consumed - Dinner: 85 Subjective Subjective Patient was seen & assessed and interval progress reviewed with nursing and social work. Patient fell asleep faster and slept 5 hours continuously with trazodone trial. then awoke with anxiety and some FANG--accepted tylenol. Staff concerned about possible priapism this am. Patient denied pain, had a 15 min erection that he considered a positive as he has been less interested in sex. He and typically have sex twice a week. He is comfortable continuing trazodone trial at this time. Reviewed his ADHD-RS which was positive (4 or more part A). Physical Exam Psychiatric Orientation: alert and oriented x 3 Apperance: appropriately dressed and appropriately groomed Eye Contact: good eye contact Motor Behavior: no abnormal motor movements Speech: normal rate/rhythm/volume of speech Affect: + anxious affect (less) Mood: + anxious mood Thought Process: goal directed thought process Thought Content: reality based without delusions Suicidal Thoughts: denies suicidal thoughts and denies suicidal intent Homicidal Thoughts: denies homicidal thoughts Hallucinations: no auditory hallucinations and no visual hallucinations Cognition: attention grossly intact and language grossly intact Estimated Intelligence: consistent with education level Insight: + limited insight Judgment: + limited judgement Vital Signs (Past 24 Hours) Last Vital Signs Temp 36.6 C 02/25/23 06:37 Pulse 98 H 02/25/23 06:37 Resp 18 02/25/23 06:37 BP 122/85 02/25/23 06:37 Pulse Ox 95 02/22/23 20:39 O2 Del Method Room Air 02/22/23 20:39 Results & Data ([facility]) Laboratory Results Laboratory Results - last 24 hr 02/22/23 14:05 U Marijuana THC Carboxy 53 H Drug Screen Comment SEE NOTE Current Inpatient Medications Current Inpatient Medications: Current Inpatient Medications Acetaminophen (Acetaminophen 325 Mg Tab) 650 mg PO Q4H PRN PRN Reason: Headache or Minor Fever Stop: 03/24/23 19:34 Last Admin: 02/25/23 03:54 Dose: 650 mg Al Hydrox/Mg Hydrox/Simethicone (Aluminum/Magnesium Susp 30 Ml Udc) 30 ml PO Q4H PRN PRN Reason: GI Upset Stop: 03/24/23 19:34 Bismuth Subsalicylate (Bismuth Subsalicylate Liqd 236 Ml) 15 ml PO PRN PRN PRN Reason: Loose Stool Stop: 03/24/23 19:34 Escitalopram Oxalate (Escitalopram Oxalate 20 Mg Tab) 20 mg PO QAM WALDO Stop: 03/25/23 09:29 Last Admin: 02/25/23 07:40 Dose: 20 mg Magnesium Hydroxide (Magnesium Hydroxide Susp 30 Ml Udc) 30 ml PO DAILY PRN PRN Reason: Constipation Stop: 03/24/23 19:34 Sodium Chloride (Sodium Chloride 0.65% Na Soln 45 Ml ([place])) 1 - 2 sprays NA PRN PRN PRN Reason: Nasal Dryness/Congestion Stop: 03/24/23 19:34 Trazodone HCl (Trazodone Hcl 100 Mg Tab) 100 mg PO HS WALDO Stop: 03/26/23 21:59 Last Admin: 02/24/23 21:50 Dose: 100 mg Trazodone HCl (Trazodone Hcl 50 Mg Tab) 50 mg PO HS PRN PRN Reason: Insomnia Stop: 03/26/23 21:59 Mental Health & Subst Abuse Tx Psychiatrist Name of Psychiatrist: Ene Headley- Messi Choi Psychiatrist's Date Of Appointment With Psychiatric Provider: 03/11/2023 Time of Appointment with Psychiatrist: 8:15am (please call within 24 hours to change/cancel appt.) Psychiatric Appointment Comment: [address] [place] [address] Therapist Name of Therapist: [facility]- Rakesh Mix Post Discharge Appointments Primary Care Physician Name Of Family Doctor/PCP: [facility] Time of Appointment with PCP: please follow up as needed Provider Appointment Comment: [address] [place] [address] Contact Information Discharge Discharge Address: [address] [place], [place] [address] [address]
[2023-02-25] MEDS: traZODone HCL 100 MG TAB PO SCH (21:51)
[2023-02-26] MEDS: ESCITALOPRAM OXALATE 20 MG TAB PO SCH (07:41)
--- NOTE | 2023-02-26 09:45 | Discharge Summary ---
Date of Service February 26, 2023 History of Present Illness As per ED CM: Patient admits to suicidal ideations for the past 3 or 4 months, but recently those thought have become more pronounced. Patient has an ambivalence to living/dying and if a car would cross the middle line in hit him, he would be okay with that. Patient was watching a television show with his favorite actor Tomas Pepe who completed suicide via hanging himself, patient considered this plan. Patient just wants to find peace in his head. Patient was prescribed Zoloft and Adderall by his PCP recently, however, patient did not like the side effects, so he discontinued. Patient then started Lexapro 10mg, a prescription prescribed to his and has been taking it for the past 2 weeks, he is unsure if he has seen improvements. 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 Patient reports depressive symptoms as crying spells, feelings of helpless/hopelessness, self-devaluation, guilt, lack of motivation, loss of daily function, isolating/avoiding situations, anhedonia, poor concentration and decrease in restful sleep. Patient reports manic symptoms of elevated/expansive mood, racing thoughts and flight of ideas. Patient describes severe anxiety on most days with chest discomfort, shortness of breath, hot flashes, trembling and a sense of burying head in sand with occasional anxiety attacks. Patient denies visual hallucinations, but is having these very strong thoughts/voices that are extremely negative and critical. Patient is unsure if he would call them hallucinations. Patient reports he was bullied in school, but does not necessar john feel it would be considered trauma/abuse. Patient reports he had a previous history of alcohol abuse earlier this year drinking every day. Patient is now drinking alcohol 1-2x weekly, prescribed medical marijuana card and is smoking nearly every day in the evenings, denies tobacco use. Patient lives at home with his 16 years and 3 children, ages 13, 11 and 8. Patient especially enjoys hiking, playing tennis, playing pickle ball, megan-caching, watching movies, spending time with his children and campfires; however, he has lost all interest in those at this time. Patient reports last night his oldest child told him he was a disappointment. Patient does not have any medical concerns, wears contacts and has those in. Today the patient confirms the history as presented. Feels that Lexapro has been helpful but not enough to help with his depression, anxiety, social anxiety, and perfectionistic traits. He reported a family history of bipolar but denies sharon though his thoughts race and he has self medicated heavily in the past with ETOH referring to himself as a "functional alcoholic." He was able to cut back on his use on his own, mainly as swapped for medical MJ in 08/2023. He denies any change in his use or types of products (thC vs cbd). He has been discussing his symptoms with HR and utilized [facility] to connect with an online therapist with whom he has 1 session. He does believe that he had ADHD symptoms as a child and still impacts his adult life. He was made aware that we do not provide full ADHD testing battery and focus of treatment is getting his depression and anxiety under better control so that he can be further assessed. ADHD-RS will be provided. Physical Exam Psychiatric See admission H&P and DOD assessment. Vital Signs (Past 24 Hours) Last Vital Signs Temp 36.6 C 02/26/23 05:47 Pulse 109 H 02/26/23 05:48 Resp 18 02/26/23 05:47 BP 122/77 02/26/23 05:48 Pulse Ox 95 02/22/23 20:39 O2 Del Method Room Air 02/22/23 20:39 Principal Diagnosis Major depressive disorder Psychiatric Data See daily stay summary. In short, safety was maintained and the patient was co operative with care. Medication changes included an increase in Lexapro, trial of prn Vistaril for breakthought anxiety and trazodone for sleep as Vistaril was ineffective. He tolerated medications well and was educated about risks of priapism. His ADHD-RS and clinical interactions were consistent with adult ADHD and he was referred for psychological testing. A family session was held with the patient's and safety plan was completed prior to discharge. The patient was initially rather medication focussed and reported using medical MJ regularly (daily in the pm around 6 pm). He was able to reframe some of his thought distortions around work and having a context for his difficulty with self-regulation that drove his use of ETOH in the past was helpful. He attributed some of his perfectionistic traits to attending primary school in [place] (cultural). He also has difficulty prioritizing tasks and gets easily overwhelmed. He was educated re: avoiding benzodiazepines given his hx of ETOH abuse and "addictive" personality. Reviewed that many providers will not prescribe in combination with medication MJ and that his panic attacks are driven by DARRYL rather than de ana so managing his stress is hannah. Ideally he would avoid medical MJ while adjusting to new medications and awaiting formal ADHD testing (if required by his outpatient provider) but harm reduction would be to avoid high THC products and look for CBD:THC ratio of 2:1. Day of Discharge Assessment Today the patient voices readiness for discharge. They note improvement in mood and deny thoughts to harm self or others. Thoughts remain organized and they are improved from admission. There is no evidence of psychosis. They agree to take mediations as prescribed and keep follow-up appointments. They are stable for discharge to outpatient level of care. Transition of Care Transition Of Care Record: was reviewed with the patient Advance Directives Advance Directives Information Provided: Yes Advance Directives: Yes Mental Health Advance Directive: No Advance Directives on File: No Living Will: Yes (At home.) Power of Dentofacial Orthopedics Dentist: No Advance Directives Reason:: Declines as Mental Health Visit. Suicide Risk Level Suicide Risk Level Comments: Suicide risk at discharge is deemed low as the patient is no longer requiring 24-hr monitoring, has a safety plan, and is free of suicidal ideation at discharge. Risk Factors Assessment Male: Yes : Yes Do You Have Access To A Gun?: No Mental Health Diagnoses: Yes Substance Use Disorders: Yes Previous Attempt: No Previous Psychiatric Hospitalization: No Protective Factors Assessment : Yes Responsible for Young Children: Yes Employed: Yes Stable Relationships: Yes Supportive Family: Yes Tobacco Cessation at Discharge Tobacco Cessation Medication Prescribed at Discharge: Not Applicable/Non-Smoker Total Time Total Time Spent: Greater Than 30 Minutes Total Time Includes: Examination of the patient, Discharge Planning and Medication Reconciliation Discharge Data Lab Results 02/22/23 02/22/23 02/22/23 14:01 14:05 14:05 WBC RBC Hgb Hct MCV MCH MCHC RDW Std Deviation RDW Coeff of Maya Plt Count MPV Immature Gran % (Auto) Neut % (Auto) Lymph % (Auto) Sutter % (Auto) Eos % (Auto) Baso % (Auto) Neut # (Auto) Lymph # (Auto) Sutter # (Auto) Eos # (Auto) Baso # (Auto) Immature Gran # (Auto) Sodium Potassium Chloride Carbon Dioxide Anion Gap BUN Creatinine Est Cr Clr Drug Dosing Est GFR ( Amer) Est GFR (Non-Af Amer) BUN/Creatinine Ratio Glucose Calcium Total Bilirubin AST ALT Alkaline Phosphatase Total Protein Albumin Globulin Albumin/Globulin Ratio TSH Urine Color Yellow Urine Appearance Clear Urine pH 7.0 Ur Specific Tutor Key 1.016 Urine Protein Negative Urine Glucose (UA) Negative Urine Ketones Negative Urine Blood Negative Urine Nitrite Negative Urine Bilirubin Negative Urine Urobilinogen Negative Ur Leukocyte Esterase Negative Salicylates < 3.0 L Urine Opiates Screen Neg Ur Methadone, Qual Neg Acetaminophen < 3 L Urine Barbiturates Neg Ur Phencyclidine (PCP) Neg U Amphetamin/Meth Scrn Neg MDMA (Ecstasy) Screen Neg U Benzodiazepines Scrn Neg Ur Cocaine Metabolite Neg U Marijuana (THC) Screen Pos H U Marijuana THC Carboxy Drug Screen Comment Ethyl Alcohol mg/dL SARS-CoV-2, RNA, NAAT 02/22/23 02/22/23 02/22/23 14:05 14:10 14:10 WBC 9.62 RBC 5.04 Hgb 15.3 Hct 43.2 MCV 85.7 MCH 30.4 MCHC 35.4 RDW Std Deviation 37.2 RDW Coeff of Maya 12.0 Plt Count 295 MPV 10.1 Immature Gran % (Auto) 0.1 Neut % (Auto) 71.8 Lymph % (Auto) 17.6 Sutter % (Auto) 8.9 Eos % (Auto) 1.0 Baso % (Auto) 0.6 Neut # (Auto) 6.90 H Lymph # (Auto) 1.69 Sutter # (Auto) 0.86 H Eos # (Auto) 0.10 Baso # (Auto) 0.06 Immature Gran # (Auto) 0.01 Sodium 137 Potassium 3.8 Chloride 102 Carbon Dioxide 26 Anion Gap 9 BUN 16 Creatinine 0.87 Est Cr Clr Drug Dosing Not Reportable Est GFR ( Amer) 126.9 Est GFR (Non-Af Amer) 109.5 BUN/Creatinine Ratio 18.4 Glucose 87 Calcium 9.6 Total Bilirubin 0.8 AST 20 ALT 22 Alkaline Phosphatase 69 Total Protein 7.7 Albumin 4.7 Globulin 3.0 Albumin/Globulin Ratio 1.6 TSH Urine Color Urine Appearance Urine pH Ur Specific Tutor Key Urine Protein Urine Glucose (UA) Urine Ketones Urine Blood Urine Nitrite Urine Bilirubin Urine Urobilinogen Ur Leukocyte Esterase Salicylates Urine Opiates Screen Ur Methadone, Qual Acetaminophen Urine Barbiturates Ur Phencyclidine (PCP) U Amphetamin/Meth Scrn MDMA (Ecstasy) Screen U Benzodiazepines Scrn Ur Cocaine Metabolite U Marijuana (THC) Screen U Marijuana THC Carboxy 53 H Drug Screen Comment SEE NOTE Ethyl Alcohol mg/dL SARS-CoV-2, RNA, NAAT 02/22/23 02/22/23 02/22/23 14:10 14:10 14:10 WBC RBC Hgb Hct MCV MCH MCHC RDW Std Deviation RDW Coeff of Maya Plt Count MPV Immature Gran % (Auto) Neut % (Auto) Lymph % (Auto) Sutter % (Auto) Eos % (Auto) Baso % (Auto) Neut # (Auto) Lymph # (Auto) Sutter # (Auto) Eos # (Auto) Baso # (Auto) Immature Gran # (Auto) Sodium Potassium Chloride Carbon Dioxide Anion Gap BUN Creatinine Est Cr Clr Drug Dosing Est GFR ( Amer) Est GFR (Non-Af Amer) BUN/Creatinine Ratio Glucose Calcium Total Bilirubin AST ALT Alkaline Phosphatase Total Protein Albumin Globulin Albumin/Globulin Ratio TSH 2.868 Urine Color Urine Appearance Urine pH Ur Specific Tutor Key Urine Protein Urine Glucose (UA) Urine Ketones Urine Blood Urine Nitrite Urine Bilirubin Urine Urobilinogen Ur Leukocyte Esterase Salicylates Urine Opiates Screen Ur Methadone, Qual Acetaminophen Urine Barbiturates Ur Phencyclidine (PCP) U Amphetamin/Meth Scrn MDMA (Ecstasy) Screen U Benzodiazepines Scrn Ur Cocaine Metabolite U Marijuana (THC) Screen U Marijuana THC Carboxy Drug Screen Comment Ethyl Alcohol mg/dL < 10.0 SARS-CoV-2, RNA, NAAT NEGATIVE Hospital Course (1) Major depressive disorder with current active episode: (2) Generalized anxiety disorder: (3) Alcohol use disorder: in partial remission 02/23/23: Intervention was greater than 5 min in length and included assessing ongoing motivation to abstain from alcohol as recently going out for 2-3 drinks with coworkers and using medical MJ daily. utility maintenance worker will also assist in anticipating barriers to sobriety and in problem-solving for solutions to those problems while arranging for referral to aftercare. The patient is advised to decrease alcohol consumption due to depressant effects and risk of interaction with prescription medications. No current risk of withdrawal. (4) Attention deficit disorder of adult: (5) Medical cannabis use: Plan 02/25/23: continue current meds and tx plan, family meeting with . 02/24/23: Reviewed acute inpatient is for stabilization and needs longer term therapy and time for medication adjustments to take effect. Encouraged to consider FMLA options. Referred to [facility] and will be given blank testing option if desires to be see sooner. risks/benefits reviewed re: trazodone in place of hs hydroxyzine. hx of snoring when 35 lbs heavier but not now. 02/23/23: The patient was admitted to the [facility] ([facility] inpatient mental health unit) on q15 min checks (behavioral with suicide precautions) for safety. The patient will participate in group, recreational, and milieu therapies and will be offered additional individual and family sessions as clinically appropriate. Risks/benefits/alternatives reviewed re: antidepressants for the treatment of depression and/or anxiety. The patient agreed to a trial of Lexapro, as taking 10 mg for 3-4 weeks will titrate to 20 mg and monitor. Vistaril prn as ordered. Mental Health & Subst Abuse Tx Psychiatrist Name of Psychiatrist: Ene Headley- Messi [facility]oi Psychiatrist's Date Of Appointment With Psychiatric Provider: 03/11/2023 Time of Appointment with Psychiatrist: 8:15am (please call within 24 hours to change/cancel appt.) Psychiatric Appointment Comment: [address] [place] [address] Psychiatrist Release of Information: Obtained, Reviewed and Signed Therapist Name of Therapist: [facility]- Rakesh Mix Therapy Appointment Comment: Please resume your normal schedule. Post Discharge Appointments Primary Care Physician Name Of Family Doctor/PCP: Daren Lawrence- Dr. Jose R Brown Primary [facility] Time of Appointment with PCP: please follow up as needed Provider Appointment Comment: [address] [place] [address] Primary Care Release of Information: Obtained, Reviewed and Signed Smoking Cessation Counseling Tobacco Cessation Medication Prescribed at Discharge: Not Applicable/Non-Smoker Other #2: Name of Aftercare Appointment: [facility]- Dr. Luciano Welsh Phone Number of Aftercare Appointment: [phone] Date of Aftercare Appointment: 11/16/23 Time of Aftercare Appointment: 12pm Aftercare Appointment Comment: [address], [place], [place] Contact Information Discharge Discharge Address: [address] [place] [id number] Discharge Plan Discharge Items Patient Disposition: Home - Self-Care Reason For Visit: MENTAL HEALTH EVAL Discharge Diagnosis: major depressive disorder Condition on Discharge: Good Activity: Resume your previous activity Non-emergency contact: Primary Care Provider, Psychiatrist and Therapist Call non-emergency contact if: you have any medication questions and your symptoms worsen Follow-up/Referrals: PCP,NO [Primary Care Provider] - Diet: Regular Addtl Attending Provider Instructions: SPECIAL CARE INSTRUCTIONS: 1. Follow through with your scheduled aftercare appointments. If unable to keep an appointment, please call to reschedule. 2. Take your medication only as prescribed. Medication should not be changed or stopped without the approval of your doctor. In the event of worsening symptoms or concerns about side effects, contact your doctor immediately. 3. Utilize new healthy coping skills, anger management skills, and stress management skills learned during your hospitalization. Journal feelings and process them with a support person. Identify stressors or situations that may result in relapse, deterioration or inappropriate behaviors and develop a plan to deal with those issues. 4. If your coping skills are ineffective and you are in crisis, contact your outpatient providers for direction. If unable to reach your providers, please call the [facility] CRISIS LINE AT , go to the [facility] walk-in center at [address] [place] [address], [address], [place], or go to the closest Emergency Room. 5. Avoid alcohol and un-prescribed drugs. 6. You have been provided with the Mental Health Advance Directives Pamphlet for your review. 7. Your condition is stable for discharge to outpatient level of care, but recovery is an ongoing process. Ifthoughts to harm yourself or others return, follow the safety plan developed during your stay. Planning for a safe return home includes securing weapons. Our treatment team recommends weaponsbe removed from the home until your outpatient provider reassesses your progress. In rare cases where the items themselvescannot be removed, guns and ammunitionshould be secured separatelyand keys stored by a reliable personoutside of the home. If you were admitted on an involuntary commitment, the police or other legal authorities may be involved in this process. AFTERCARE APPOINTMENTS: * Please call your insurance company prior to your scheduled appointment to confirm your aftercare providers are covered. Take your insurance information to your appointments. WHO TO CALL AND WHEN: Medical Emergencies: For questions or emergencies related to your hospital stay, please contact the Inpatient Behavioral Health Unit at [phone]. A psychiatric nurse practitioner is on-call 24/05 for the Behavioral Health Unit for emergencies At any time you feel your situation is an emergency, you may also call 911 immediately. Pending Studies at Discharge: No Stand-Alone Forms: My [facility] [employer], Smoking Cessation Medications and DC Order Prescriptions: New trazodone 100 mg Tablet 100 mg PO HS Qty: 30 0RF escitalopram oxalate 20 mg Tablet 20 mg PO QAM Qty: 30 0RF hydroxyzine HCl 50 mg tablet 50 mg PO Q6 PRN (Reason: anxiety/sleep) Qty: 30 0RF Discharge Orders: Discharge Order (Routine); Ordered 02/26/23 Ordered By: Asha Lopez Admission Data Admit Date/Time: 02/22/23 19:36 Attending Provider: Asha Lopez Admit Provider: Asha Lopez Primary Care Provider: PCP,NO Other Interventions: Discharge Summary Assessment (RN) Last Done: 02/26/23 10:14 PSY Interdisciplinary Discharge Planning Last Done: 02/26/23 10:12 Coding Level of Care Code 07201 D/C day mgmt > 30 min Diagnoses Major depressive disorder with current active episode F32.9 Generalized anxiety disorder F41.1 Alcohol use disorder F10.90 Attention deficit disorder of adult F98.8 Medical cannabis use Z79.899
== END 2023-02-26 10:36 | disposition home or self-care (01) | DRG 881 ==
LOC: ED 13:20 → 3S 19:36